=== PATIENT | male | born 1970 | race Caucasian/White ===

== ENCOUNTER 2016-03-20 22:44 | Emergency (ER) | payer SELFPAY ==
[~2016-03-20] VITALS: Ht 175.3 cm; Wt 72.6 kg
[~2016-03-20 22:44] MED LIST: Hydrocodone/Acetaminophen PO; LEVO500T38 PO; Nicotine TD; OXYC-323 PO; SULF1TAB24 PO
[2016-03-20] MEDS ORDERED: IV NORMAL SALINE 500ML BAG 500 ML IV ONE (23:15)
[2016-03-20] MEDS ORDERED: MORPHINE SULFATE 10 MG/ML VIAL. IV ONE (23:30)
[2016-03-20] MEDS ORDERED: DEXAMETHASONE SOD PHOS 4 MG/ML VIAL IV ONE (23:30)
--- NOTE | 2016-03-20 23:51 | PHYS DOC ---
Past Medical History Past Medical History: Other Additional Past Medical Histor: LT FOOT INFECTION Past Surgical History: No Surgical History Alcohol Use: Heavy Drug Use: Marijuana, Methamphetamine Adult General Chief Complaint Chief Complaint: PAIN CONTROL HPI HPI Patient is a 45 year old male [facility] of bilateral testicular pain and swelling that is been intermittent for the greater part of a year. Patient was actually seen here in the emergency department on . He was diagnosed with epididymitis. He was placed on Levaquin as well as Percocet for pain control. Patient admits that he did not review the discharge instructions and did not follow up with anyone. He states he does not have a primary care doctor. Patient denies injury. Patient denies fevers or chills. He denies nausea and vomiting. Patient denies discharge. Review of Systems Review of Systems Constitutional: Denies fever or chills [] Eyes: Denies change in visual acuity, redness, or eye pain [] HENT: Denies nasal congestion or sore throat [] Respiratory: Denies cough or shortness of breath [] Cardiovascular: No additional information not addressed in HPI [] GI: Denies abdominal pain, nausea, vomiting, bloody stools or diarrhea [] : Denies dysuria or hematuria [] Musculoskeletal: Denies back pain or joint pain [] Integument: Denies rash or skin lesions [] Neurologic: Denies headache, focal weakness or sensory changes [] Endocrine: Denies polyuria or polydipsia [] Current Medications Current Medications Current Medications Medications (Trade) Dose Ordered Sig/Veronica Start Time Stop Time Status Last Admin Dose Admin Dexamethasone Sodium Phosphate (Decadron) 10 mg 1X ONCE 03/20/16 23:30 03/20/16 23:31 DC 03/20/16 23:43 10 MG Morphine Sulfate 5 mg 1X ONCE 03/20/16 23:30 03/20/16 23:31 DC 03/20/16 23:46 5 MG Sodium Chloride (Iv Sodium Chloride 0.9% 500ml Bag) 500 ml @ 500 mls/hr 1X ONCE 03/20/16 23:15 03/21/16 00:14 DC 03/20/16 23:44 500 MLS/HR Allergies Allergies Allergies Coded Allergies Type Severity Reaction Last Updated Verified I S O L A T I O N *CONTACT* Allergy Unknown 06/15/14 Yes No Known Medication Allergies Allergy Unknown 06/15/14 Yes Physical Exam Physical Exam Constitutional: Well developed, well nourished, mild distress, non-toxic appearance. Patient appears angry. He is demeanor towards staff and myself as growth. I personally had to redirect the patient in his manner of speech and behavior. Patient did apologize for this. HENT: Normocephalic, atraumatic, bilateral external ears normal, oropharynx moist, no oral exudates, nose normal. [] Eyes: PERRLA, EOMI, conjunctiva normal, no discharge. [] Neck: Normal range of motion, no tenderness, supple, no stridor. [] Cardiovascular:Heart rate regular rhythm, no murmur [] Lungs & Thorax: Bilateral breath sounds clear to auscultation [] Abdomen: Bowel sounds normal, soft, no tenderness, no masses, no pulsatile masses. Patient has slightly erythematous and swollen scrotum bilaterally. Both testicles are somewhat swollen, right greater than left. There is exquisite tenderness to the epididymal region of both. Patient complains of increased pain on the right side. There is no Arreola clap or deformity or blue dot. Patient is circumcised. There is no meatal discharge or lesions to the skin of his penis. Skin: Warm, dry, no erythema, no rash. [] Back: No tenderness, no CVA tenderness. [] Extremities: No tenderness, no cyanosis, no clubbing, ROM intact, no edema. [] Neurologic: Alert and oriented X 3, normal motor function, normal sensory function, no focal deficits noted. [] Psychologic: Affect normal, judgement normal, mood normal. [] Current Patient Data Vital Signs Vital Signs Date Time Temp Pulse Resp B/P Pulse Ox O2 Delivery O2 Flow Rate FiO2 03/20/16 23:46 Room Air 03/20/16 23:07 97.4 72 24 157/87 100 97.4 Lab Values Laboratory Tests Test 03/20/16 23:40 White Blood Count 10.9x10^3/uL (4.0-11.0) Red Blood Count 4.73x10^6/uL (4.30-5.70) Hemoglobin 15.0g/dL (13.0-17.5) Hematocrit 44.0% (39.0-53.0) Mean Corpuscular Volume 93fL (79-100) Mean Corpuscular Hemoglobin 32pg (25-35) Mean Corpuscular Hemoglobin Concent 34g/dL (31-37) Red Cell Distribution Width 12.8% (11.5-14.5) Platelet Count 215x10^3/uL (140-400) Neutrophils (%) (Auto) 76% (31-73) H Lymphocytes (%) (Auto) 16% (24-48) L Monocytes (%) (Auto) 7% (0-9) Eosinophils (%) (Auto) 1% (0-3) Basophils (%) (Auto) 1% (0-3) Neutrophils # (Auto) 8.2x10^3uL (1.8-7.7) H Lymphocytes # (Auto) 1.7x10^3/uL (1.0-4.8) Monocytes # (Auto) 0.7x10^3/uL (0.0-1.1) Eosinophils # (Auto) 0.1x10^3/uL (0.0-0.7) Basophils # (Auto) 0.1x10^3/uL (0.0-0.2) Urine Collection Type Unknown Urine Color Yellow Urine Clarity Clear Urine pH 8.0 Urine Specific Nicolaus 1.015 Urine Protein Negativemg/dL (NEG-TRACE) Urine Glucose (UA) Negativemg/dL (NEG) Urine Ketones (Stick) Negativemg/dL (NEG) Urine Blood Negative (NEG) Urine Nitrite Negative (NEG) Urine Bilirubin Negative (NEG) Urine Urobilinogen Dipstick 0.2mg/dL (0.2 mg/dL) Urine Leukocyte Esterase Negative (NEG) Urine RBC Occ/HPF (0-2) Urine WBC Occ/HPF (0-4) Urine Squamous Epithelial Cells Few/LPF Urine Amorphous Sediment Present/HPF Urine Bacteria Few/HPF (0-FEW) Urine Mucus Slight/LPF Sodium Level 143mmol/L (136-145) Potassium Level 4.0mmol/L (3.5-5.1) Chloride Level 107mmol/L (98-107) Carbon Dioxide Level 28mmol/L (21-32) Anion Gap 8 (6-14) Blood Urea Nitrogen 13mg/dL (8-26) Creatinine 1.1mg/dL (0.7-1.3) Estimated GFR (Cockcroft-Gault) 72.4 BUN/Creatinine Ratio 12 (6-20) Glucose Level 101mg/dL (70-99) H Calcium Level 9.1mg/dL (8.5-10.1) Total Bilirubin 0.3mg/dL (0.2-1.0) Aspartate Amino Transferase (AST) 16U/L (15-37) Alanine Aminotransferase (ALT) 10U/L (16-63) L Alkaline Phosphatase 78U/L (46-116) Total Protein 6.6g/dL (6.4-8.2) Albumin 3.5g/dL (3.4-5.0) Albumin/Globulin Ratio 1.1 (1.0-1.7) Urine Opiates Screen Neg (NEG) Urine Methadone Screen Neg (NEG) Urine Barbiturates Neg (NEG) Urine Phencyclidine Screen Neg (NEG) Urine Amphetamine/Methamphetamine Pos (NEG) Urine Benzodiazepines Screen Neg (NEG) Urine Cocaine Screen Neg (NEG) Urine Cannabinoids Screen Pos (NEG) Urine Ethyl Alcohol Neg (NEG) Laboratory Tests 03/20/16 23:40 Laboratory Tests 03/20/16 23:40 EKG EKG [] Radiology/Procedures Radiology/Procedures [ PATIENT: JACE MAK ACCOUNT: [id number] : 1970 LOCATION: ER AGE: 45 SEX: M EXAM STATUS: REG ER ORD. PHYSICIAN: LAI MIRANDA REASON: bilateral pain and swelling PROCEDURE: TESTICULAR/SCROTUM PROCEDURE Grayscale and color Doppler testicular sonogram. HISTORY Testicular pain and swelling. TECHNIQUE Grayscale and color Doppler sonographic imaging of the testes was performed with spectral waveform analysis. COMPARISON None. FINDINGS The right testis measures 3.8 x 3.2 x 2.8 cm. The left testis measures 3.9 x 3.1 x 2.9 cm. There is normal symmetric blood flow within both testes. No focal parenchymal lesion is seen. There are small bilateral epididymal cysts. These measure 5 mm on the right and 3 mm on the left. There is symmetric blood flow within the epididymi is. There are small to moderate bilateral hydroceles. No varicocele is seen. IMPRESSION 1. Small to moderate bilateral hydroceles. 2. Small epididymal cysts. Electronically signed by: Monique Trujillo (Mar 21, 2016 00:32:35) DICTATED and SIGNED BY: MONIQUE TRUJILLO MD DATE: 03/21/1631 CC: LAI MIRANDA; NO PCP ~ ] Course & Med Decision Making Course & Med Decision Making Patient had an uncomplicated stay here in the emergency department. I went back in to speak to he and his at 0048. Patient was sleeping. He was slightly difficult to arouse but did nod in consent when questions are asked and nodded in acknowledgment. I informed pain is of the need to follow-up with a urologist. voiced her concern that they're uninsured and her low income. I informed them that if they're not able to follow-up with our urologist, then they can follow-up with either [facility] or [facility]. I will provide them phone numbers for each as well. Dragon Disclaimer Dragon Disclaimer This electronic medical record was generated, in whole or in part, using a voice recognition dictation system. Departure Departure Impression: Primary Impression: Testicular pain Additional Impression: Bilateral hydrocele Disposition: HOME, SELF-CARE Condition: IMPROVED Referrals: NO PCP (PCP) MINERVA SOFIA DO Patient Instructions: Testicular Problems and Self-Exam Additional Instructions: 1. You have hydroceles on both testicles. These are fluid filled cyst that can often become inflamed. At this time, there is no evidence of infection or masses to your testicles. 2. You do need to follow-up with the urologist. You may choose to call the phone number provided for our urologist here at this hospital. If for some reason you're unable to see this urologist, you may choose to call [facility] or [facility] for assistance in receiving medical care. [facility] phone number is [phone]. [facility] is [phone]. 3. Either wear a jock strap or "tighty whiteys" to help support your scrotum and testicles. Applying cool compresses every 2 hours for 30 minutes at a time will also help minimize swelling. 4. Take the medication as prescribed. 5. Review the information in your discharge instructions for reasons to return to the emergency room. Scripts Oxycodone/Apap 5-325 (Percocet 5-325 Mg Tablet)1 Each Tablet1-2 Tab PO Q6-8HRS PRN PAIN #20 TAB Prov:LAI MIRANDA 03/21/16 Doxycycline Hyclate 100 Mg Tablet1 Tab PO BID #20 TAB Prov:LAI MIRANDA 03/21/16 Problem Qualifiers LAI MIRANDA Mar 20, 2016 23:51
[2016-03-20 23:53] LABS: BASO # 0.1 x10^3/uL (0.0-0.2); BASO % 1 % (0-3); EOS % 1 % (0-3); LYMPH # 1.7 x10^3/uL (1.0-4.8); LYMPH % 16 % (24-48); MEAN CORPUSCULAR HEMOGLOBIN 32 pg (25-35); MEAN CORPUSCULAR HGB CONC 34 g/dL (31-37); MEAN CORPUSCULAR VOLUME 93 fL (79-100); MONO % 7 % (0-9); NEUT % 76 % (31-73); PLATELET COUNT 215 x10^3/uL (140-400); RED BLOOD COUNT 4.73 x10^6/uL (4.30-5.70); RED CELL DISTRIBUTION WIDTH 12.8 % (11.5-14.5); WHITE BLOOD COUNT 10.9 x10^3/uL (4.0-11.0)
[2016-03-21 00:02] LABS: CALCIUM 9.1 mg/dL (8.5-10.1); CREATININE 1.1 mg/dL (0.7-1.3); GFR 72.4
[2016-03-21 00:08] LABS: ALBUMIN 3.5 g/dL (3.4-5.0); ALBUMIN/GLOBULIN RATIO 1.1 (1.0-1.7); TOTAL BILIRUBIN 0.3 mg/dL (0.2-1.0); TOTAL PROTEIN 6.6 g/dL (6.4-8.2)
[2016-03-21 00:23] LABS: BILIRUBIN,URINE NEGATIVE (NEG); GLUCOSE,URINE NEGATIVE (NEG); NITRITE,URINE NEGATIVE (NEG); PROTEIN,URINE NEGATIVE (NEG-TRACE); UROBILINOGEN,URINE 0.2 mg/dL (0.2 mg/dL)
[2016-03-21 00:30] LABS: BARBITURATES NEG (NEG); BENZODIAZEPINES NEG (NEG); CANNABINOIDS POS (NEG); COCAINE NEG (NEG); ETHANOL, URINE NEG (NEG); METHADONE NEG (NEG); OPIATES NEG (NEG); PHENCYCLIDINE NEG (NEG)
--- NOTE | 2016-03-21 00:34 | RAD ---
PROCEDURE Grayscale and color Doppler testicular sonogram. HISTORY Testicular pain and swelling. TECHNIQUE Grayscale and color Doppler sonographic imaging of the testes was performed with spectral waveform analysis. COMPARISON None. FINDINGS The right testis measures 3.8 x 3.2 x 2.8 cm. The left testis measures 3.9 x 3.1 x 2.9 cm. There is normal symmetric blood flow within both testes. No focal parenchymal lesion is seen. There are small bilateral epididymal cysts. These measure 5 mm on the right and 3 mm on the left. There is symmetric blood flow within the epididymi is. There are small to moderate bilateral hydroceles. No varicocele is seen. IMPRESSION 1. Small to moderate bilateral hydroceles. 2. Small epididymal cysts. Electronically signed by: Monique Nicholas (Mar 21, 2016 00:32:35)
[2016-03-21 00:37] LABS: BACTERIA,URINE FEW /HPF (0-FEW); RBC,URINE OCC /HPF (0-2); SQUAMOUS EPITHELIAL CELL,UR FEW /LPF; WBC,URINE OCC /HPF (0-4)
[2016-03-21 01:00] VITALS: BP 158/88
[2016-03-21] MEDS ORDERED: OXYC-323 PO (01:03)
[2016-03-21] MEDS ORDERED: DOXY100T PO (01:03)
== END 2016-03-21 01:30 | disposition home or self-care (01) ==
LOC: ER 22:44
DX: N45.1 Epididymitis (principal); N43.3 Hydrocele, unspecified; F15.10 Other stimulant abuse, uncomplicated; F12.10 Cannabis abuse, uncomplicated; Z91.041 Radiographic dye allergy status
CPT/HCPCS: 36415; 76870; 80053; 81001; 85027; 87491; 87591; 96361; 96374; 96375; 99285; G0481; J1100; J2270; J7040

== ENCOUNTER 2019-10-09 10:18 | Emergency (ER) | payer SELFPAY ==
[~2019-10-09] VITALS: Ht 177.8 cm; Wt 85.4 kg
[~2019-10-09 10:18] MED LIST changes: +DOXY100T PO; -LEVO500T38 PO; +LEVO500T59 PO; -OXYC-323 PO; +OXYC1TAB15 PO
[2019-10-09 10:23] VITALS: BP 115/77
--- NOTE | 2019-10-09 11:03 | PHYS DOC ---
Past Medical History Past Medical History: Schizophrenia, Other Additional Past Medical Histor: LT FOOT INFECTION Past Surgical History: Other Additional Past Surgical Histo: Cyst removal Left wrist Smoking Status: Current Every Day Smoker Alcohol Use: Sober Drug Use: Marijuana, Methamphetamine General Adult EDM: Chief Complaint: BACK PAIN OR INJURY HPI: HPI: 48-year-old male presents with 2-week history of atraumatic pain in the right hip. Pain began in the lumbar area and has been a dull pain and and slowly radiated to the right hip into the right foot. Pain is 3 out of 10 at rest but is significantly worse with movement. Patient denies any numbness or urinary incontinence or fecal incontinence. Patient also noted some swelling in his right foot over the last couple days. Patient denies any fevers, chills, cough, vomiting, diarrhea Review of Systems: Review of Systems: Constitutional: Denies fever or chills. [] Eyes: Denies change in visual acuity. [] HENT: Denies nasal congestion or sore throat. [] Respiratory: Denies cough or shortness of breath. [] Cardiovascular: Denies chest pain or edema. [] GI: Denies abdominal pain, nausea, vomiting, bloody stools or diarrhea. [] : Denies dysuria. [] Musculoskeletal: Complains of lumbar, right hip and right foot pain Integument: Denies rash. [] Neurologic: Denies headache, focal weakness or sensory changes. [] Endocrine: Denies polyuria or polydipsia. [] Lymphatic: Denies swollen glands. [] Psychiatric: Denies depression or anxiety. [] Heart Score: Risk Factors: Risk Factors: DM, Current or recent (<one month) smoker, HTN, HLP, family history of CAD, obesity. Risk Scores: Score 0 - 3: 2.5% MACE over next 6 weeks - Discharge Home Score 4 - 6: 20.3% MACE over next 6 weeks - Admit for Clinical Observation Score 7 - 10: 72.7% MACE over next 6 weeks - Early Invasive Strategies Allergies: Allergies: Allergies Coded Allergies Type Severity Reaction Last Updated Verified I S O L A T I O N *CONTACT* Allergy Unknown 06/15/14 Yes No Known Medication Allergies Allergy Unknown 06/15/14 Yes Physical Exam: PE: Constitutional: Well developed, well nourished, no acute distress, non-toxic appearance. HENT: No trismus, external ears normal Eyes: Conjunctiva clear, EOMI Neck: Normal range of motion, no tenderness, supple, no stridor. Cardiovascular: Regular rate/rhythm, peripheral pulse intact, [employer] intact Lungs & Thorax: No respiratory distress Abdomen: No distension Skin: Diffuse: Intact, no rash Back: Full ROM, minimal tenderness in the lumbar area. Extremities: Mild swelling to the right foot. No erythema or warmth. Mild tenderness to the right hip and pain with range of motion. Neurovascular intact distally Neurologic: Alert and oriented X 3, normal motor function, , no focal deficits noted. Psychologic: Affect normal, judgement normal, mood normal. Current Patient Data: Vital Signs: Vital Signs Date Time Temp Pulse Resp B/P (MAP) Pulse Ox O2 Delivery O2 Flow Rate FiO2 10/09/19 10:23 98.6 89 19 115/77 (90) 99 Room Air 98.6 EKG: EKG: [] Radiology/Procedures: Radiology/Procedures: [][place] [id number] IMAGING REPORT Signed PATIENT: JACE MAK EACCOUNT: [id number] : 1970 LOCATION: ER AGE: 48 SEX: M EXAM STATUS: REG ER ORD. PHYSICIAN: MEGAN MELCHOR MD REASON: back pain,pt states pain for 3 weeks, denies injury pain down leg PROCEDURE: LUMBAR SPINE 2-3V AP, lateral spot and lateral views of the lumbar spine were performed. History: Reason: back pain,pt states pain for 3 weeks, denies injury pain down leg / Spl. Instructions: / History: Comparison: None. There is no fracture, listhesis, there is mild degenerative change of the lumbar spine with anterior osteophyte formation identified. Electronically signed by: Harpreet Gould MD (10/09/2019 11:01 AM) [id number] DICTATED and SIGNED BY: HARPREET GOULD MD DATE: 10/09/[address] [id number] IMAGING REPORT Signed PATIENT: JACE MAK EACCOUNT: [id number] : 1970 LOCATION: ER AGE: 48 SEX: M EXAM STATUS: REG ER ORD. PHYSICIAN: MEGAN MELCHOR MD REASON: back pain,pain for 3 weeks, denies injury PROCEDURE: FOOT RIGHT 3V AP, lateral, and oblique views of the right foot were obtained. History: Reason: back pain,pain for 3 weeks, denies injury / Spl. Instructions: / History: Comparison: none. There is no fracture, subluxation or dislocation. No significant degenerative changes, or significant soft tissue swelling seen. The bones of the midfoot are well aligned. Impression: 1. Unremarkable plain film exam of the right foot Electronically signed by: Harpreet Gould MD (10/09/2019 11:01 AM) [id number] DICTATED and SIGNED BY: HARPREET GOULD MD DATE: 10/09/[address] [place] [id number] IMAGING REPORT Signed PATIENT: JACE MAK EACCOUNT: [id number] : 1970 LOCATION: ER AGE: 48 SEX: M EXAM STATUS: REG ER ORD. PHYSICIAN: MEGAN MELCHOR MD REASON: back pain,pain for 3 weeks. denies injury PROCEDURE: HIP RIGHT 2V WITH PELVIS Single AP view of the pelvis with AP and frog-leg lateral views of the right hip were obtained. History: Reason: back pain,pain for 3 weeks. denies injury / Spl. Instructions: / History: Comparison: none. No fracture is seen about the right proximal femur acetabulum. The femoral head is located in the acetabulum. No significant degenerative changes are seen. Impression: 1. Negative exam of the right hip. Electronically signed by: Harpreet Gould MD (10/09/2019 11:00 AM) [id number] DICTATED and SIGNED BY: HARPREET GOULD MD DATE: 10/09/[address] [place] [id number] IMAGING REPORT Signed PATIENT: JACE MAK EACCOUNT: [id number] : 1970 LOCATION: ER AGE: 48 SEX: M EXAM STATUS: REG ER ORD. PHYSICIAN: MEGAN MELCHOR MD REASON: r leg pain PROCEDURE: VENOUS LOWER EXTREMITY RIGHT Right lower extremity venous duplex study 10/09/2019 11:34 AM Clinical History: Reason: r leg pain / Spl. Instructions: / History: Technique: Using a combination of real time ultrasound imaging and color-flow and pulse Doppler imaging techniques, including spectral analysis, graded compression and augmentation, duplex evaluation of the deep venous system of the right lower extremity was performed. Multiple images were obtained. Findings: There is no sonographic evidence of deep venous thrombosis involving the visualized deep venous structures of the right lower extremity Impression: No evidence of deep venous thrombosis involving the right lower extremity Electronically signed by: Ethan Roberts MD (10/09/2019 11:34 AM) [id number] DICTATED and SIGNED BY: ETHAN ROBERTS MD DATE: 10/09/19 1134 Course & Med Decision Making: Course & Med Decision Making Pertinent Labs and Imaging studies reviewed. (See chart for details) [] Reevaluation 1152: Patient clinically unchanged. Work-up is negative for acute fractures. Patient has arthritis in the back is most likely headache and nerve causing sciatica. Neurovascular intact. No signs of cauda equina. Patient given referral to neurosurgery. Dragon Disclaimer: Beckie Disclaimer: This electronic medical record was generated, in whole or in part, using a voice recognition dictation system. Departure Departure Impression: Primary Impression: Acute back pain Additional Impressions: Lumbar disc disease Right sciatic nerve pain Right hip pain Right foot pain Disposition: 01 HOME, SELF-CARE Referrals: NO PCP (PCP) [facility] 2-3 DAYS Patient Instructions: Degenerative Disk Disease, Sciatica Additional Instructions: EMERGENCY DEPARTMENT GENERAL DISCHARGE INSTRUCTIONS Thank you for coming to [facility] Emergency Department (ED) today and trusting us with you care. We trust that you had a positivie experience in our Emergency Department. If you wish to speak to the department management, you may call the Director at [phone]. YOUR FOLLOW UP INSTRUCTIONS ARE FOLLOWS: 1. Do you have a private Doctor? If you do not have a private doctor, please ask for a resource list of physicians or clinics that may be able to assist you with follow up care. 2. The Emergency Physicain has interpreted your x-rays. The X-Ray specialist will also review them. If there is a change in the findings, you will be notified in 48 hours when at all possible. 3. A lab test or culture has been done, your results will be reviewed and you will be notified if you need a change in treatment. ADDITIONAL INSTRUCTIONS AND INFORMATION: 1. Your care today has been supervised by a physician who is specially trained in emergency care. Many problems require more than one evaluation for a complete diagnosis and treatment. We recommend that you schedule your follow up appointment as recommended to ensure complete treatment of you illness or injury. If you are unable to obtain follow up care and continue to have a problem, or if your consition worsens, we recommend that you return to the ED. 2. We are not able to safely determine your condition over the phone nor are we able to give sound medical advice over the phone. For these safety reasons, if you call for medical advice we will ask you to come to the ED for further evaluation. 3. If you have any questions regarding these discharge instructions please call the ED at [phone]. SAFETY INFORMATION: In the interest of safety, wellness, and injury prevention; we encourage you to wear your sealbelt, if you smoke; quite smoking, and we encourage family to use a protective helmet for bicycling and other sporting events that present an increased risk for head injury. IF YOUR SYMPTOMS WORSEN OR NEW SYMPTOMS DEVELOP, OR YOU HAVE CONCERNS ABOUT YOUR CONDITION; OR IF YOUR CONDITION WORSENS WHILE YOU ARE WAITING FOR YOUR FOLLOW UP APPOINTME NT; EITHER CONTACT YOUR PRIMARY CARE DOCTOR, THE PHYSICIAN WHOSE NAME AND NUMBER YOU WERE GIVEN, OR RETURN TO THE ED IMMEDIATELY. Scripts Methylprednisolone (MEDROL) 4 Mg Tab.ds.pk 1 PKG PO UD, #1 PKG Prov: MEGAN MELCHOR MD 10/09/19 Methocarbamol (ROBAXIN-750) 750 Mg Tablet 750 MG PO QID PRN for PAIN for 5 Days, #20 TAB Prov: MEGAN MELCHOR MD 10/09/19 Justicifation of Admission Dx: Justifications for Admission: Justification of Admission Dx: N/A MEGAN MELCHOR MD 24, 2020 11:03
--- NOTE | 2019-10-09 11:37 | RAD ---
Right lower extremity venous duplex study 10/09/2019 11:34 AM Clinical History: Reason: r leg pain / Spl. Instructions: / History: Technique: Using a combination of real time ultrasound imaging and color-flow and pulse Doppler imaging techniques, including spectral analysis, graded compression and augmentation, duplex evaluation of the deep venous system of the right lower extremity was performed. Multiple images were obtained. Findings: There is no sonographic evidence of deep venous thrombosis involving the visualized deep venous structures of the right lower extremity Impression: No evidence of deep venous thrombosis involving the right lower extremity Electronically signed by: Ethan Richmond MD (10/09/2019 11:34 AM) [id number]
[2019-10-09] MEDS ORDERED: METH-38 PO (11:58)
[2019-10-09] MEDS ORDERED: METH4TAB2 PO (11:58)
== END 2019-10-09 12:45 | disposition home or self-care (01) ==
LOC: ER 10:18
DX: M54.41 Lumbago with sciatica, right side (principal); M25.551 Pain in right hip; M79.671 Pain in right foot; R60.0 Localized edema; F20.9 Schizophrenia, unspecified; F17.200 Nicotine dependence, unspecified, uncomplicated; F12.90 Cannabis use, unspecified, uncomplicated; F19.90 Other psychoactive substance use, unspecified, uncomplicated; Z98.890 Other specified postprocedural states
CPT/HCPCS: 72100; 73502; 73630; 93971; 99284